=== PATIENT | male | born 1950 | race Caucasian/White ===

== ENCOUNTER 2016-09-12 11:14 | Emergency (ER) | payer MEDICARE, OTHER ==
[2016-09-12 11:17] VITALS: BP 121/87; PULSE 110; RESP 14; O2SAT 98
--- NOTE | 2016-09-12 12:55 | ED.REPORT ---
HPI-General Illness Date of Service September 12, 2016 ED Provider: The patient is a 66 year old male with history of recent brain tumor resection, who presents to the emergency department complaining of constipation. He has not had a bowel movement in about 5-6 days. He has also noticed some abdominal cramping. His surgery was about 2 weeks ago. He took oxycodone for about 1 week but discontinued this due to development of a rash. He was then started on hydrocodone for pain. He has not had any pain medication for the last few days due to concern about the constipation. He has been using multiple medications to help with the constipation but he has not had any relief. He has only had about 2 bowel movements since his surgery. He has not been eating as much as normal. He denies fever, chills or vomiting. Nursing Notes Stated Complaint: POST SURGERY/WEAK/CONSTIPATED Chief Complaint: Male Abdominal Pain Nursing Notes Reviewed: Yes Allergies: Coded Allergies: No Known Allergies (Unverified , 09/12/16) Scheduled Polyethylene Glycol 3350 (Miralax) 17 Gm Powd.pack 17 GM PO DAILY Scheduled PRN Magnesium Hydroxide (Milk of Magnesia) 400 Mg/5 Ml Oral.susp 15 ML PO QID PRN PRN For Constipation General Time Seen by MD: 12:54 Chief Complaint Other (constipation) Hx Obtained From: Patient Arrived By: Walk-in Sudden in Onset?: No Onset Occurred: 6 days ago Symptom Duration: Since onset Location: : Abdomen Quality: Cramping, Painful Severity: Current: Mild Severity: Maximum: Moderate Recent Healthcare: Recent doctor visit, Previous surgery (brain surgery) Similar Sx Previous: No Past Medical History Past Medical History Brain tumor Hypertension Past Surgical History Brain tumor resection Bilateral shoulder surgery Left ear surgery Family History Noncontributory Smoking History Never Smoker Social History Alcohol Use: "Social" Drug Use: Denies drug use Other Social History: Good social support, Local resident Ambulatory Status Independent Review of Systems +decreased appetite Full Review of Systems Constitutional: Denies: Chills, Fever GI: Reports: Abdominal pain, Constipation, Denies: Vomiting Complete sys rev & neg: except as marked. Physical Exam Vital Signs Vital Signs Date Time Temp Pulse Resp B/P Pulse Ox O2 Delivery O2 Flow Rate FiO2 09/12/16 16:11 91 18 117/56 97 Room Air 09/12/16 11:17 36.6 110 14 121/87 98 Room Air Initial VS: Reviewed ENT: Mucous membranes moist, Conjunctiva normal, No scleral icterus Neck: Supple, Non-tender, Full range of motion Respiratory: Breath sounds normal, Clear to auscultation, No respiratory distress Cardiovascular: Regular rate & rhythm, Heart sounds normal, Intact distal pulses Lymphatic: No lymphadenopathy Extremities: Vascular intact, Neuro intact, No swelling, No tenderness Skin: Warm, Dry, No cyanosis Neurologic: Alert, Oriented, Nonfocal Psychiatric: Mood/affect normal, Behavior normal, Normal thought content General/Constitutional: Awake, Alert, Cooperative Abdomen: Soft, No guarding, No rebound, BS normoactive, No hernia, No palpable mass, No pulsatile mass Tenderness/Guarding/Rebound: Positive: Tender diffuse (mild) Bowel Sounds / Distention: Positive: Distention mild Rectum / Perineum: Atraumatic There is some hard stool in the rectal vault but it does not appear that he needs to be disimpacted at this time. Interpretation & Diagnostics Lab Results Interpretation Result Diagram: 09/12/16 1520 09/12/16 1520 Test 09/12/16 14:30 09/12/16 15:20 Hold Urine Received (Received) White Blood Count 13.0th/mm3 (3.8-10.1) Red Blood Count 4.06mil/mm3 (4.40-5.80) Hemoglobin 12.9g/dL (13.8-17.2) Hematocrit 38.3% (41.0-50.0) Mean Corpuscular Volume 94.3fL (81-100) Mean Corpuscular Hemoglobin 31.8pg (27.0-35.0) Mean Corpuscular Hemoglobin Concent 33.7% (32.0-37.0) Red Cell Distribution Width 12.7% (12.3-15.4) Platelet Count 367bil/L (150-400) Neutrophils (%) (Auto) 79.0% (40-74) Lymphocytes (%) (Auto) 11.6% (14-46) Monocytes (%) (Auto) 8.8% (4-12) Eosinophils (%) (Auto) 0.2% (0-5) Basophils (%) (Auto) 0.1% (0-3) Sodium Level 136mEq/L (134-144) Potassium Level 4.6mEq/L (3.5-5.2) Chloride Level 99mEq/L (97-108) Carbon Dioxide Level 23mmol/L (18-29) Blood Urea Nitrogen 31mg/dL (8-27) Creatinine 0.90mg/dL (0.76-1.27) Estimat Glomerular Filtration Rate 90mL/min (>59) Glucose Level 121mg/dL (60-99) Calcium Level 10.0mg/dL (8.5-10.1) Total Bilirubin 0.6mg/dL (0.0-1.2) Aspartate Amino Transf (AST/SGOT) 20U/L (0-50) Alanine Aminotransferase (ALT/SGPT) 23U/L (0-44) Alkaline Phosphatase 99U/L (25-160) Total Protein 7.6g/dL (6.4-8.4) Albumin 3.9g/dL (3.4-5.0) Hold [place] Top Tube Received (Received) X-Ray Abdominal Interpretation IMPRESSION: 1. Bowel gas pattern within normal limits without evidence of obstruction. Small amount of colonic stool distention may reflect constipation. Dictated by: Darwin Capone M.D. on 09/12/2016 at 13:54 Interpretation / Wet Read by: Interpret - Radiologist CT Abd / Pelvis Interpretation IMPRESSION: A definite source of abdominal pain is not seen. There dependent layering densely calcified gallstones within the gallbladder lumen, small in size but no evidence of biliary obstruction or acute cholecystitis. Normal appendix found. Sigmoid and rectal obstipation. No mass lesion seen at the sigmoid or rectum. Dictated by: Alexey Shaffer M.D. on 09/12/2016 at 17:03 Study type: Abdominal CT IV contrast Interpretation / Wet Read by: Interpret - Radiologist Re-Eval/Medical Decision Med Decision/Clinical Course Patient presents with constipation likely secondary to recent narcotic use. Rectal exam is performed and he does not have a fecal impaction. Enemas were given in the ER. Basic labs and CT simply show constipation. Recommend aggressive outpatient bowel regimen. Return and follow-up precautions given. Source of Hx: Old records, Family Time of Eval: 17:35 Re-Evaluation/Progress Note: Rechecked the patient. Discussed results, diagnosis, and plan for discharge. All questions were addressed. Counseled Regarding: Diagnosis, Lab results, Need for follow-up, When/why to return to ED Discharge & Departure Primary Impression: Constipation Constipation type: unspecified constipation type Qualified Code: K59.00 - Constipation, unspecified Disposition: Home Discharge Condition All VS Reviewed: Yes Condition: Stable Patient Instructions: Constipation (ED) Additional Instructions: Thank you for entrusting us with your care today. Your abdominal CT and x-ray do show evidence of constipation. Take the medications as prescribed. By the morning you have not had a bowel movement, used to sodium phosphate fleets enemas approximately 2 hours apart. Take milk of magnesia every 6 hours , until you have had a large volume bowel movement. Begin taking MiraLAX daily as well. Make sure to drink plenty of fluids. Followup with your regular doctor if your symptoms are not improving in a few days. Return to the emergency department if you develop increased pain, vomiting, fever, bloody stools, or any other new or concerning symptoms. Referrals: Casie Chan PAC (Family) Scribe Attestation Portions of this note were transcribed by Guillermina Alexander. I, Dr. Vernon personally performed the history, physical exam and medical decision-making; I reviewed and confirmed the accuracy of the information in the transcribed note. Signed by: Majo Maldonado, 09/12/2016 at 1800. copies to: Casie Chan Timothy S DO September 12, 2016 12:55 Guillermina Alexander September 12, 2016 13:20
[2016-09-12] MEDS ORDERED: HYDROcodone-APAP 7.5-325 mg Tablet PO ONE (13:25)
--- NOTE | 2016-09-12 13:57 | DRSVH ---
PROCEDURE: X-RAY ABDOMEN, ONE VIEW ([id number]) INDICATIONS: upright abdomen TECHNIQUE: One view of the abdomen acquired. COMPARISON: None. FINDINGS: Surgical changes and devices: None. Bowel: Bowel gas pattern is within normal limits without dilated bowel loops to suggest obstruction. There is a small amount of colonic stool distention which may reflect constipation. Soft tissues: No suspicious abdominal calcifications. Bones: No suspicious bony lesions. IMPRESSION: 1. Bowel gas pattern within normal limits without evidence of obstruction. Small amount of colonic stool distention may reflect constipation. Dictated by: Darwin Capone M.D. on 09/12/2016 at 13:54 Approved by: Darwin Capone M.D. on 09/12/2016 at 13:55
[2016-09-12] MEDS ORDERED: 0.9% Sodium Chloride 1,000 ML IV ONE (14:10)
[2016-09-12 15:35] LABS: BASOPHILS % (AUTO) 0.1 % (0-3); EOSINOPHILS % (AUTO) 0.2 % (0-5); MONOCYTES % (AUTO) 8.8 % (4-12); Mean Corpuscular Hemoglobin 31.8 pg (27.0-35.0); Mean Corpuscular Volume 94.3 fL (81-100); Platelet Count 367 bil/L (150-400)
[2016-09-12] MEDS ORDERED: Ondansetron 2 mg/mL 2 mL Inj IVPUSH PRN (15:55)
[2016-09-12 16:11] VITALS: BP 117/56; PULSE 91; RESP 18; O2SAT 97
--- NOTE | 2016-09-12 17:07 | DRSVH ---
PROCEDURE: CT ABDOMEN AND PELVIS WITH CONTRAST ([id number]) INDICATIONS: abd pain TECHNIQUE: After the administration of intravenous contrast, 5 mm thick sections acquired from the diaphragm to the symphysis. 5 mm coronal and sagittal reformats were acquired. For radiation dose reduction, the following was used: automated exposure control, adjustment of mA and/or kV according to patient siz e. COMPARISON: None. FINDINGS: Image quality: Excellent. ABDOMEN: Lung bases: Lung bases are clear. Heart size is normal. Solid organs: Liver and spleen are normal in size and enhancement. Gallbladder contains layering ca lcifications, without evidence of biliary obstruction or acute cholecystitis. Biliary system is non dilated. Pancreas enhances normally. No adrenal nodules. Kidneys demonstrate normal size and enhan cement, without hydronephrosis. Peritoneum and bowel: Bowel loops demonstrate normal wall thickness and caliber. No free fluid or a ir. Nodes and vessels: No retroperitoneal or mesenteric adenopathy by size criteria. Aorta and inferior vena cava are normal in size. Miscellaneous: No ventral hernias. PELVIS: Genitourinary: Bladder wall thickness is normal. The bladder is somewhat prominent in size measurin g up to 11.5 cm AP, 12.3 cm transverse and 11.2 cm craniocaudad. Miscellaneous: No inguinal hernias or adenopathy. A normal appendix is found at the right lower pawel drant. Note is made of mild colonic obstipation involving the sigmoid colon and rectum. Bones: No suspicious bony lesions. No vertebral body compression fractures. IMPRESSION: A definite source of abdominal pain is not seen. There dependent layering densely calcif ied gallstones within the gallbladder lumen, small in size but no evidence of biliary obstruction or acute cholecystitis. Normal appendix found. Sigmoid and rectal obstipation. No mass lesion seen at the sigmoid or rectum. Dictated by: Alexey Shaffer M.D. on 09/12/2016 at 17:03 Approved by: Alexey Shaffer M.D. on 09/12/2016 at 17:05
[2016-09-12] MEDS ORDERED: MAGN400O4 PO (17:43)
[2016-09-12] MEDS ORDERED: POLY17PO6 PO (17:43)
[2016-09-12 18:27] VITALS: BP 120/61; PULSE 87; RESP 16; O2SAT 97
== END 2016-09-12 18:54 | disposition home or self-care (01) ==
LOC: SED 11:14
DX: K59.00 Constipation, unspecified (principal); I10 Essential (primary) hypertension; Z98.890 Other specified postprocedural states; Z85.841 Personal history of malignant neoplasm of brain; Z79.891 Long term (current) use of opiate analgesic
CPT/HCPCS: 36415; 74000; 74177; 80053; 85025; 96361; 96374; 99285; J2270; J7030; Q9967